=== PATIENT | male | born 1955 | race Caucasian/White ===

== ENCOUNTER 2024-07-18 10:43 | Emergency (ER) | payer OTHER ==
[~2024-07-18] VITALS: Ht 182.9 cm; Wt 100.0 kg
[2024-07-18 10:56] VITALS: BP 193/122; PULSE 97; O2SAT 98
[2024-07-18] MEDS ORDERED: METH-797 PO (12:27)
[2024-07-18] MEDS ORDERED: NAPR-56 PO (12:27)
[2024-07-18] MEDS ORDERED: GABA300C PO (12:27)
[2024-07-18 12:41] VITALS: RESP 18
[2024-07-18] MEDS: HYDROcodone/acetaminophen 10/325mg tab PO ONE (12:41)
[2024-07-18] MEDS: ketorolac trometh 30MG/ML vial 30 MG/ML VIAL IM ONE (12:41)
[2024-07-18] MEDS: orphenadrine citrate 60mg/2ml inj. IM ONE (12:41)
[2024-07-18 12:54] VITALS: TEMP 97.2
== END 2024-07-18 12:56 | disposition home or self-care (01) ==
LOC: ER 10:43
DX: M54.50 Low back pain, unspecified (principal); M45.6 Ankylosing spondylitis lumbar region; G89.29 Other chronic pain; Z88.8 Allergy status to other drugs, medicaments and biological substances; Z79.899 Other long term (current) drug therapy; Z79.1 Long term (current) use of non-steroidal anti-inflammatories (NSAID)
CPT/HCPCS: 96372; 99283; J1885; J2360